=== PATIENT | female | born 1985 | race American Indian/Alaskan Native ===

== ENCOUNTER 2020-04-14 07:27 | Outpatient (CLI) | payer OTHER | END 2020-04-14 08:15 | disposition home or self-care (01) | LOC: NST 07:27 | PROVIDERS: ATTEND Obstetrics & Gynecology Maternal & Fetal Medicine | DX: Z34.83 Encounter for supervision of other normal pregnancy, third trimester (principal) ==

== ENCOUNTER 2020-05-02 09:28 | Outpatient (CLI) | payer OTHER | END 2020-05-02 11:00 | disposition home or self-care (01) | LOC: NST 09:28 | PROVIDERS: ATTEND Obstetrics & Gynecology | DX: Z34.83 Encounter for supervision of other normal pregnancy, third trimester (principal) ==

== ENCOUNTER 2020-05-11 09:56 | Outpatient (CLI) | payer OTHER | END 2020-05-11 10:22 | disposition home or self-care (01) | LOC: NST 09:56 | PROVIDERS: ATTEND Obstetrics & Gynecology Maternal & Fetal Medicine | DX: Z34.83 Encounter for supervision of other normal pregnancy, third trimester (principal) ==

== ENCOUNTER 2020-05-19 08:16 | Outpatient (CLI) | payer OTHER | END 2020-05-19 10:53 | disposition home or self-care (01) | LOC: NST 08:16 | PROVIDERS: ATTEND Obstetrics & Gynecology Maternal & Fetal Medicine | DX: Z34.83 Encounter for supervision of other normal pregnancy, third trimester (principal) ==

== ENCOUNTER → 2020-05-25 | Outpatient (CLI) | payer OTHER | END | disposition home or self-care (01) | LOC: NST 07:57 | PROVIDERS: ATTEND Obstetrics & Gynecology Maternal & Fetal Medicine | DX: Z34.83 Encounter for supervision of other normal pregnancy, third trimester (principal) ==

== ENCOUNTER 2020-06-01 07:52 | Outpatient (CLI) | payer OTHER | END 2020-06-01 08:58 | disposition home or self-care (01) | LOC: NST 07:52 | PROVIDERS: ATTEND Obstetrics & Gynecology | DX: Z34.83 Encounter for supervision of other normal pregnancy, third trimester (principal) ==

== ENCOUNTER 2020-06-08 08:33 | Outpatient (CLI) | payer OTHER | END 2020-06-08 10:35 | disposition home or self-care (01) | LOC: NST 08:33 | PROVIDERS: ATTEND Obstetrics & Gynecology Maternal & Fetal Medicine | DX: Z34.83 Encounter for supervision of other normal pregnancy, third trimester (principal) ==

== ENCOUNTER 2020-06-15 07:00 | Inpatient (IN) | payer OTHER ==
[~2020-06-15] VITALS: Ht 157.5 cm; Wt 3.6 kg
[2020-06-15] MEDS ORDERED: HUM (08:39)
[2020-06-15] MEDS ORDERED: SYNTHROID150 MCG PO (08:40)
[2020-06-16] MEDS ORDERED: ASA81 MG PO (11:16)
[2020-06-16] MEDS ORDERED: PRENATAL TABLE1 EAC1 PO (11:16)
[2020-06-16] MEDS ORDERED: SYNTHROID75 MCG PO (11:16)
[2020-06-16] MEDS ORDERED: HUMALOG (11:17)
== END 2020-06-19 13:13 | disposition home or self-care (01) | DRG 786 ==
LOC: LDR 06-16 10:50 → O/R 06-16 16:09 → SURG-SUITE 06-16 17:27 → OB/GYN 06-21 07:00
PROVIDERS: ADMIT Obstetrics & Gynecology; ATTEND Obstetrics & Gynecology
PROC: 4A1HXFZ Monitoring of Products of Conception, Cardiac Rhythm, External Approach (ICD-10-PCS; 2020-06-16)
PROC: 10D00Z1 Extraction of Products of Conception, Low, Open Approach (ICD-10-PCS; principal; 2020-06-16 17:30)
DX: O34.211 Maternal care for low transverse scar from previous cesarean delivery (principal); O24.32 Unspecified pre-existing diabetes mellitus in childbirth; E11.9 Type 2 diabetes mellitus without complications; Z3A.36 36 weeks gestation of pregnancy; Z37.0 Single live birth; Z20.822 Contact with and (suspected) exposure to COVID-19

== ENCOUNTER 2020-06-16 08:23 | Outpatient (CLI) | payer OTHER ==
[~2020-06-16 08:23] MED LIST: HUM; SYNTHROID150 MCG PO
[2020-06-16] MEDS ORDERED: SYNTHROID75 MCG PO (11:16)
[2020-06-16] MEDS ORDERED: PRENATAL TABLE1 EAC1 PO (11:16)
[2020-06-16] MEDS ORDERED: ASA81 MG PO (11:16)
[2020-06-16] MEDS ORDERED: HUMALOG (11:17)
== END 2020-06-16 11:29 | disposition still patient (30) ==
LOC: NST 08:23
PROVIDERS: ATTEND Obstetrics & Gynecology
DX: Z34.83 Encounter for supervision of other normal pregnancy, third trimester (principal)